=== PATIENT | male | born 1995 | race Caucasian/White ===

== ENCOUNTER 2017-02-19 23:49 | Emergency (ER) | payer OTHER ==
[~2017-02-19] VITALS: Ht 170.2 cm; Wt 79.2 kg
[2017-02-19 23:53] VITALS: Ht 170.2 cm; Wt 79.2 kg
[2017-02-20] MEDS ORDERED: XYLOCAINE 1%/SOD BICARB 20 ML VIAL INFIL ONE (00:15)
[2017-02-20] MEDS ORDERED: CEFTRIAXONE SOD 350MG/ML 1 GM VIAL IM ONE (00:30)
[2017-02-20] MEDS ORDERED: BUPIVACAINE 0.25% 30 ML VIAL INFIL ONE (00:30)
[2017-02-20] MEDS ORDERED: CEPH500C PO (01:14)
[2017-02-20] MEDS ORDERED: HYDR-5688 PO (01:14)
[2017-02-20 01:27] VITALS: BP 136/89; PULSE 62; TEMP 36.9; O2SAT 98
--- NOTE | 2017-02-20 01:47 | EMERGENCY ROOM VISIT NOTE ---
History First contact with patient: 23:58 Chief Complaint: LACERATION/CUT (SUT/DERMABOND) Stated Complaint: CUT RIGHT THUMB NAIL Nursing Triage Summary: Patient smashed right thumb in a car door." Swelling and nail bed ecchymosis noted to right thumb History of Present Illness The patient is a 21 year old male who presents to the Emergency Room with complaints of injury to his right thumb that occurred just prior to arrival. The patient states that he was out drinking tonight and got into an [employer] to go home. As he got out of the [employer], the door closed, and caused a crush type injury to his right thumb. There was immediate pain and swelling to the thumb. The patient rates his pain a 6/10 and believes he is up-to-date on his tetanus. He is with full sensation and range of motion. He does not have injury of the hand or wrist. He has not had similar injuries in the past. Review of Systems More than 10 systems were reviewed and otherwise negative with the exception of history of present illness. Past Medical/Surgical History Surgical Problems: (1) Hx of appendectomy Family History Cancer Social History Smoking Status: Never Smoker Alcohol Use: occasionally Drug Use: none Marital Status: single Housing Status: lives with roommate Occupation Status: [employer] student Current/Historical Medications Scheduled Cephalexin Monohydrate (Keflex), 500 MG PO TID Scheduled PRN Hydrocodone/Acetaminophen 5MG/325MG ([place] 5MG/325MG), 1-2 TABLET PO Q6 PRN for Pain Allergies Coded Allergies: No Known Allergies (Unverified , 02/20/17) Physical Exam Vital Signs Date Time Temp Pulse Resp B/P Pulse Ox O2 Delivery O2 Flow Rate FiO2 02/20/17 01:27 36.9 62 20 136/89 98 02/19/17 23:53 36.9 64 18 153/87 98 Room Air Pain Rating (0-10): 2.0 Physical Exam VITALS: Vitals are noted on the nurse's note and reviewed by myself. Vital signs stable. GENERAL: Well-developed, well-nourished, white male, who is in no acute distress and resting comfortably. Patient is cooperative with the examination. HEAD: Normocephalic atraumatic. HEART: Regular rate and rhythm without murmurs gallops or rubs. LUNGS: Clear to auscultation bilaterally without wheezes, rales or rhonchi. No retractions or accessory muscle use. MUSCULOSKELETAL: The proximal fingernail of the right thumb is lifted out of the cuticle. There is blood coming from this region. The distal thumb nail is intact and attached. The patient has full sensation and range of motion. He does have distal tenderness but not proximal tenderness of the thumb. No other injury noted. NEURO: Patient was alert and oriented to person place and time. CN II through XII grossly intact. Medical Decision & Procedures Medications Administered Medications (Trade) Dose Ordered Sig/Kailee Route Start Time Stop Time Status Last Admin Dose Admin Ceftriaxone Sodium (Rocephin Im) 1,000 mg NOW ONCE IM 02/20/17 00:30 02/20/17 00:31 DC 02/20/17 00:54 1,000 MG Procedure Laceration repair. Patient elects to have their laceration repaired. Verbal consent was obtained to perform the procedure. There is an abundance of materials available for the procedure. Patient is not allergic to latex. Using sterile technique the wound was cleaned with Betadine. The area was sterilely draped. 5 mL of a 50-50 mixture of 0.25% Sensorcaine and 1% buffered lidocaine was used to anesthetize the right thumb in a digital block fashion. Once the patient was anesthetized, the thumb nail was easily removed utilizing pickups. Upon further inspection there appears to be a crescent shaped 2 cm nailbed laceration. The wound was explored and there were no deep structures injured such as tendons or significant blood vessels. The nailbed laceration was repaired with 3 simple interrupted 6-0 Vicryl sutures. The fingernail was placed into an anatomic position and tethered in place with 4 5-0 nylon sutures. The area was cleaned with sterile saline and dressed with bacitracin ointment and bandage. Patient tolerated the procedure well without complications. Blood loss was negligible. ED Course Physical exam and history were performed. Nursing notes and EMR were reviewed. Patient appears to have suffered injury to his right thumb after closing it in the door of an [employer]. X-rays obtained and appears to show a distal fracture of the right distal phalanx. Clinically this is concerning for open fracture. He patient is right finger was anesthetized with digital block and his fingernail was removed. The patient does have a nail bed laceration, and I feel that this is most concerning for fracture. The wound was copiously irrigated with 1.5 L normal saline. The patient laceration and fingernail were repaired as above and the patient tolerated this well. The patient was given 1 g IM Rocephin here in the department. He will be given a continuation prescriptions of Keflex and a prescription of Vicodin for pain control. A metal cage splint was placed. I discussed at length the importance of following with orthopedics, and the patient will contact Dr. Alva's office in the morning. He was otherwise invited back to the ER with any new, worsening, or concerning symptoms. The chart was completed utilizing [employer] Speech Voice Recognition Software. Grammatical errors, random word insertions, pronoun errors, and incomplete sentences are an occasional consequence of this system due to software limitations, ambient noise, and hardware issues. Any formal questions or concerns about the content, text, or information contained within the body of this dictation should be directly addressed to the provider for clarification. . Medical Decision Differential diagnosis includes, but is not limited to: Sprain, strain, fracture , dislocation, subluxation, contusion, crush injury Impression Primary Impression: Open fracture of right thumb Additional Impression: Laceration of fingernail bed Departure Information Dispostion Home / Self-Care Condition GOOD Prescriptions Hydrocodone/Acetaminophen 5MG/325MG ([place] 5MG/325MG) Tab 1-2 TABLET PO Q6 Y for Pain, #24 TAB For Initial Treatment Prov: Kurt Pearce PA-C 02/20/17 Cephalexin Monohydrate (Keflex) 500 Mg Cap 500 MG PO TID for 7 Days, #21 CAP Prov: Kurt Pearce PA-C 02/20/17 Referrals Dar Alva MD Forms HOME CARE DOCUMENTATION FORM, IMPORTANT VISIT INFORMATION Patient Instructions [facility], ED Fx Finger Open Additional Instructions You were seen and evaluated today on an emergency basis only. This is not a substitute for, or an effort to provide, complete comprehensive medical care. It is not possible to recognize and treat all injuries or illnesses in a single emergency department visit. For this reason it is recommended that you followup with [facility] , Dr. Alva's office, by telephone in the morning to arrange a follow-up appointment. Let them know you were seen in the emergency department to help facilitate care. They should see you later this week. For baseline pain relief you may alternate ibuprofen and acetaminophen every 4 hours for pain control. Take 600 mg ibuprofen (Advil) and then 4 hours later take 1000 mg acetaminophen (Tylenol). Do not take more than 3000 mg acetaminophen in a single day. [place] (hydrocodone/acetaminophen) 5/325 mg ONE or TWO every 6 hours as needed for worsening breakthrough pain. Do not drink or drive on [place]. This medication will likely make you tired. Do not take [place] and Tylenol at the same time as both contain acetaminophen. [place] may cause constipation. You may wish to take an [id number] stool softener like Colace if this occurs. Cephalexin(Keflex) 500mg: Take one pill 3 times daily for 7 days to prevent infection. All antibiotics can cause diarrhea. If this occurs and you feel worse or it does not resolve in 1-2 days follow up with your doctor or return to the Emergency Department as this could be signs of serious underlying problems. Any medication can cause an allergic reaction, stop the pills immediately and return to the ER for rash, hives, breathing difficulties, or swelling. Suture removal should occur in around 14 days or at the recommendation of orthopedics. This can be performed by your primary care physician, ER, or orthopedics. You are welcome to return to the emergency department anytime with new, worsening, or concerning symptoms. Problem Qualifiers
--- NOTE | 2017-02-20 06:42 | DIAGNOSTIC IMAGING REPORT ---
RIGHT FINGER(S) MIN 2 VIEWS ROUTINE CLINICAL HISTORY: right thumb injury Right trauma. Pain. COMPARISON: None. DISCUSSION: Fracture DISTAL phalanx right thumb. Associated soft tissue disruption. No evidence of dislocation. IMPRESSION: Fracture distal phalanx right thumb Electronically signed by: Alli Ryan M.D. 02/20/2017 6:41 AM Dictated Date/Time: 02/20/2017 6:40 AM
== END 2017-02-20 01:31 | disposition home or self-care (01) ==
LOC: C.EDB 23:51
DX: S62.521B Displaced fracture of distal phalanx of right thumb, initial encounter for open fracture (principal); W23.0XXA Caught, crushed, jammed, or pinched between moving objects, initial encounter; Z80.9 Family history of malignant neoplasm, unspecified